=== PATIENT | male | born 1970 | race Caucasian/White ===

== ENCOUNTER 2018-01-10 10:11 | Day surgery (SDC) | payer OTHER ==
[2018-01-10] MEDS ORDERED: Propofol 10 mg/ml Inj (20 ML) ONE (12:47)
[2018-01-10] MEDS ORDERED: Lactated Ringer's 1,000 ML IV ONE (12:50)
[2018-01-10] MEDS ORDERED: Lactated Ringer's 500 ML IV ONE (13:35)
[2018-01-10 13:36] VITALS: O2SAT 99
[2018-01-10 14:10] VITALS: BP 114/70; PULSE 69; RESP 16; TEMP 97.5
== END 2018-01-10 14:08 | disposition home or self-care (01) ==
LOC: C.ENDO 10:11
PROVIDERS: ATTEND Internal Medicine Gastroenterology
DX: R10.13 Epigastric pain (principal); K29.50 Unspecified chronic gastritis without bleeding